=== PATIENT | female | born 1995 | race Two or more races ===

== ENCOUNTER 2019-11-05 16:00 | Inpatient (IN) | payer OTHER ==
[~2019-11-05] VITALS: Ht 162.6 cm; Wt 97.1 kg
== END 2019-11-07 13:51 | disposition home or self-care (01) | DRG 807 ==
LOC: LDR 16:00 → OB/GYN 16:00 → LDR 19:13 → OB/GYN 22:35
PROVIDERS: ADMIT Obstetrics & Gynecology
PROC: 10E0XZZ Delivery of Products of Conception, External Approach (ICD-10-PCS; principal; 2019-11-05)
PROC: 10907ZC Drainage of Amniotic Fluid, Therapeutic from Products of Conception, Via Natural or Artificial Opening (ICD-10-PCS; 2019-11-05)
PROC: 4A1HXCZ Monitoring of Products of Conception, Cardiac Rate, External Approach (ICD-10-PCS; 2019-11-05)
DX: O80 Encounter for full-term uncomplicated delivery (principal); Z37.0 Single live birth; Z3A.37 37 weeks gestation of pregnancy

== ENCOUNTER → 2019-11-05 | Outpatient (CLI) | payer OTHER | END | disposition home or self-care (01) | LOC: PRENATAL 11:30 | DX: O36.5991 Maternal care for other known or suspected poor fetal growth, unspecified trimester, fetus 1 (principal); O99.213 Obesity complicating pregnancy, third trimester; O36.8191 Decreased fetal movements, unspecified trimester, fetus 1; O26.843 Uterine size-date discrepancy, third trimester ==